=== PATIENT | male | born 1955 | race Caucasian/White ===

== ENCOUNTER 2023-08-11 08:00 | Outpatient (REF) | payer OTHER, SELFPAY ==
[2023-08-11 09:47] LABS: Cholesterol 136 mg/dL (<200); HDL Cholesterol 52 mg/dL (>40); LDL Cholesterol Calculated 76 mg/dL (<100); Triglycerides 44 mg/dL (<150)
[2023-08-11 09:53] LABS: Prostate Specific Antigen 0.76 ng/mL (<0.05-4.0)
[2023-08-11 10:02] LABS: TSH reflex Free T4 7.25 uIU/mL (0.32-4.0)
[2023-08-11 10:54] LABS: Free T4 (Free Thyroxine) 0.76 ng/dL (0.71-1.85)
== END 2023-08-11 08:01 | disposition home or self-care (01) ==
LOC: HO.LAB 08:00
PROVIDERS: PCP Nurse Practitioner Primary Care; Visit Provider Nurse Practitioner Primary Care
DX: Z12.5 Encounter for screening for malignant neoplasm of prostate (principal); E03.8 Other specified hypothyroidism
CPT/HCPCS: 36415; 80061; 84153; 84439; 84443

== ENCOUNTER → 2023-08-16 15:24 | Outpatient (BNVA) | payer OTHER, SELFPAY | PROVIDERS: PCP Nurse Practitioner Primary Care; Referring Provider Nurse Practitioner Primary Care; Visit Provider Surgery | DX: K40.90 Unilateral inguinal hernia, without obstruction or gangrene, not specified as recurrent (principal) | CPT/HCPCS: 99202 ==

== ENCOUNTER 2023-08-16 15:25 | Outpatient (AMB) | payer OTHER, SELFPAY ==
--- NOTE | 2023-08-16 15:28 | MHC.OFFVIS ---
Intake Vital Signs 08/16/23 15:33 Weight 149 lb BP 149/67 H Blood Pressure Location Rt brachial Position Sitting Pulse 46 L Intake Visit Reasons: [facility] Intake Note: This patient presents for an assessment for right inguinal hernia. Patient c/o; reports no pain, reports notices it has increased in size. 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 He says he has noticed this reducible mass on the right groin for probably about 4 months now. Sometimes it becomes bigger. He describes discomfort with this. This is reducible easily. He also has enlargement of this left testicle. He review of his records show that he had been diagnosed to have a hydrocele in the past. [facility] Medical History (Updated 08/16/23 @ 15:50 by Mehran Mosqueda MD) Right inguinal hernia Anxiety History of thyroiditis History of hyperparathyroidism Surgical History History of parathyroid surgery Family History Sister Throat cancer Review of Systems Const Denies chills and Denies fever(s) Card Denies chest pain, Denies dyspnea and Denies dyspnea on exertion Resp Denies cough, Denies dyspnea and Denies dyspnea on exertion GI Denies hematochezia and Denies change in bowel habits Denies hematuria and Denies difficulty urinating Musc Denies back pain and Denies limited range of motion Neuro Denies focal weakness and Denies convulsions Psych Denies depression and Denies mood swings Physical Exam Vital Signs: Last Vital Signs Pulse 46 L 08/16/23 15:33 BP 149/67 H 08/16/23 15:33 Const General: comfortable and no acute distress Orientation/consciousness: patient oriented x3 Neck Neck: Yes no lymphadenopathy Resp Auscultation: clear to auscultation bilaterally Cardio Rhythm: regular rhythm GI Other: Right inguinal hernia, easily reducible, nontender Palpation (GI): Soft to palpation, nontender and no guarding Other: Left testicle seems enlarged Neuro General: patient oriented x3 Assessment & Plan Assessment & Plan (1) Right inguinal hernia: Code(s): K40.90 - Unilateral inguinal hernia, without obstruction or gangrene, not specified as recurrent Plan: He has a reducible right inguinal hernia. He has some discomfort and he feels that this has increased in size. He wants to proceed with repair. I reviewed with him the technique of repair of the right inguinal hernia with mesh. I discussed the risks including but not limited to bleeding, infections, bowel injury, injury to the testicle, recurrence, postop pain, as well as the benefits and alternatives. I explained to him what to expect postoperatively. He wants to proceed He also has an enlargement of his left testicle. He has a history of hydrocele so I will order for an ultrasound of the mass scrotum. His daughter in-law was with him during the visit. Coding Level of Care Code New Pt Level 4 (09709) Diagnoses Right inguinal hernia K40.90
[2023-08-16 15:33] VITALS: BP 149/67; PULSE 46
== END 2023-08-16 15:46 | disposition home or self-care (01) ==
PROVIDERS: PCP Nurse Practitioner Primary Care; Referring Provider Nurse Practitioner Primary Care; Visit Provider Surgery
DX: K40.90 Unilateral inguinal hernia, without obstruction or gangrene, not specified as recurrent (principal)
CPT/HCPCS: 99204

== ENCOUNTER → 2023-09-21 08:47 | Day surgery (SDC) | payer OTHER, SELFPAY ==
--- NOTE | 2023-09-19 12:05 | HO.ANESPROP2 ---
HPI - Anesthesia Eval Consult details Narrative: 67yo M for Right Hernia Inguinal Reducible with Mesh PMFSH Active Problems Active Problems: All Active Problems (Updated 08/16/23 @ 15:53 by Mehran Mosqueda MD) Mass of left testicle (Acute) Right inguinal hernia (Acute) Anxiety (Acute) History of thyroiditis (Acute) History of hyperparathyroidism (Acute) Past Medical History Medical History Mass of left testicle Right inguinal hernia Anxiety History of thyroiditis History of hyperparathyroidism Family History Family History Sister Throat cancer Surgical History Surgical History History of right inguinal hernia repair (~09/25/23) History of parathyroid surgery Social History Social History Patient Tobacco Use Status: Never used Tobacco Second Hand Smoke Exposure: No Meds Allergies Allergy/AdvReac Type Severity Reaction Status Date / Time No Known Allergies Allergy Verified 10/04/23 14:09 Home Medications ?Medication ?Instructions ?Recorded ?Confirmed ?Last Taken ?Type mirtazapine 15 mg tablet 15 mg PO BEDTIME 08/16/23 09/25/23 Unknown History sertraline 25 mg tablet 25 mg PO DAILY 08/16/23 09/25/23 Unknown History Assessment and Plan Assessment Anesthesia Assessment: Chart Reviewed
== END ==
PROVIDERS: PCP Nurse Practitioner Primary Care; Visit Provider Surgery
DX: K40.90 Unilateral inguinal hernia, without obstruction or gangrene, not specified as recurrent (principal); Z53.8 Procedure and treatment not carried out for other reasons

== ENCOUNTER 2023-09-21 14:17 | Outpatient (REF) | payer OTHER, SELFPAY ==
--- NOTE | ~2023-09-21 | US_ITS ---
EXAMINATION: US SCROTUM CLINICAL INFORMATION: Other specified disorders of the male genital organs. COMPARISON: None available. TECHNIQUE: A sonogram of the scrotum was performed assessing jane-scale appearance and color Doppler flow. Spectral Doppler analysis of the arterial and venous flow were performed in the testes bilaterally. FINDINGS: RIGHT: Right testicle measures 3.8 x 2.5 x 2.2 cm, volume 10.5 mL. No focal testicular parenchymal lesions are visualized, but parenchymal echogenicity is heterogeneous with hypoechoic area measured 1.5 x 0.5 x 0.8 cm.. Spectral Doppler analysis of the arterial and venous flow is normal in the right testis Right epididymal head is very small epididymal head cyst measured 0.3 x 0.2 x 0.2 cm another epididymal body cysts measured 0.4 x 0.2 x 0.2 cm. No right varicocele is seen. There is small hydrocele. Right epididymal Doppler flow is normal. LEFT: Left testicle measures 4.9 x 2.8 x 2.6 cm, volume 18.4 mL. No focal testicular parenchymal lesions are visualized. Spectral Doppler analysis of the arterial and venous flow is normal in the left testis. Left epididymal head is normal in size. No left varicocele is seen. There is epididymal appendix present. Left epididymal body is not seen due to large hydrocele, measured 5.2 x 3.1 x 4.8 cm with a volume of 41 mL. Left epididymal Doppler flow is limited for evaluation. There is left epididymal head 0.2 cm cyst. There is a right inguinal hernia, measured 0.8 x 1.7 cm US/US scrotum IMPRESSION: Large hydrocele on the left and small hydrocele on the right Small bilateral epididymal cysts 9 right inguinal hernia without bowel loops protrusion or incarceration
== END 2023-09-21 14:18 | disposition home or self-care (01) ==
LOC: HO.US 14:17
PROVIDERS: PCP Nurse Practitioner Primary Care; Visit Provider Surgery
DX: N50.89 Other specified disorders of the male genital organs (principal)
CPT/HCPCS: 76870

== ENCOUNTER 2023-09-25 08:44 | Day surgery (SDC) | payer OTHER, SELFPAY ==
[2023-09-25] VITALS (7 sets, daily range): BP systolic 108–142; BP diastolic 52–72; PULSE 46–56; RESP 16–18; TEMP 36.1–36.4; O2SAT 96–100; BMI 24.2
--- NOTE | 2023-09-25 09:09 | P.CONAN_ITS ---
[facility] Active Problems Active Problems: All Active Problems Mass of left testicle (Acute) Right inguinal hernia (Acute) Anxiety (Acute) History of thyroiditis (Acute) History of hyperparathyroidism (Acute) Past Medical History Medical History Mass of left testicle Right inguinal hernia Anxiety History of thyroiditis History of hyperparathyroidism Family History Family History Sister Throat cancer Surgical History Surgical History History of parathyroid surgery History of Problems with Anesthesia: No Social History Social History (Reviewed 09/25/23 @ : by Elaina Willard MD) Patient Tobacco Use Status: Never used Tobacco Second Hand Smoke Exposure: No Use of substances other than those prescribed or required for medical reasons: No Are you DNR?: No Advance Directives: No Advance Directives Information Provided: Yes Advance Directives on File: No Meds Allergies Allergy/AdvReac Type Severity Reaction Status Date / Time No Known Allergies Allergy Verified 08/16/23 15:28 Active Medications: Current Medications Lactated Ringer's (Lr) 1,000 mls @ 100 mls/hr IVCONT .Q10H EMRE Home Medications ?Medication ?Instructions ?Recorded ?Confirmed ?Last Taken ?Type mirtazapine 15 mg tablet 15 mg PO BEDTIME 08/16/23 09/25/23 Unknown History sertraline 25 mg tablet 25 mg PO DAILY 08/16/23 09/25/23 Unknown History Exam Height,Weight and Vital Signs: Height 5 ft 6 in Weight 68.096 kg Last Vital Signs Temp 97.6 F 09/25/23 09:07 Pulse 49 L 09/25/23 09:07 Resp 16 09/25/23 09:07 BP 142/72 H 09/25/23 09:07 Pulse Ox 100 09/25/23 09:07 O2 Del Method Room Air 09/25/23 09:07 Airway Mallampati Class: II TM Dist: >3cm Neck ROM: Full Loose/Missing/Broken Teeth: No Heart: RRR Lungs: CTA Assessment and Plan Assessment Anesthesia Assessment: Anesthesia Plan Discussed and Chart Reviewed Final Anesthetic Review History of Problems with Anesthesia: No NPO: Yes ASA Class: II Final Preanesthetic Review: Meds/Allgs Chart Reviewed, Consent Obtained/Reviewed and Anes Risks/Benef Reviewed Patient Risk: Low Procedure Risk: Low Anesthetic Plan Anesthetic Plan: GA Disposition: Standard PACU
[2023-09-25] MEDS: Lactated Ringers 1,000 ML 100 ML IVCONT (09:19)
--- NOTE | 2023-09-25 09:47 | P.HPSUR_ITS ---
Pre-Procedural Eval Section A - 24 Hr Update-Section A only Date of Service: 09/25/23 Section B - Complete if H&P > 30 days Chief Complaint: Unilateral inguinal hernia, without obstruction or Details of Present Illness: has right sided inguinal hernia, reducible Relevant Family History (Specify if Yes): No Relevant Social History: None Present Medications: see Short Stay Collaborative assessment Medical History: Significant History (hx of hyperparathyroidism, thyroid d/o) History of Previous Operations: No relevant previous surgery Allergies: Allergies Allergy/AdvReac Type Severity Reaction Status Date / Time No Known Allergies Allergy Verified 08/16/23 15:28 Review of Systems Sugical H&P ROS: Negative: Constitution, Cardiovascular, Respiratory, Neurological, Psychiatric, Hem-Onc, Allergic/Immunologic, Gastrointestinal, Gen itourinary, Musculoskeletal, Integumentary, Endocrine and Eyes/Ears/Nose/Throat Exam Surgical H&P Exam: Normal: HEENT, Normal: Heart, Normal: Lungs, Normal: Extremities, Normal: Skin and Normal: Neurological and Significant Findings: Abdomen (reducible right inguinal hernia) Plan Diagnosis/Plan: Unchanged I have reviewed the history and physical and performed a pertinent physical examination on my patient. No changes have occurred unless specified. Time Spent With Patient Time: Total time managing care of this patient today ____ minutes.
--- NOTE | 2023-09-25 10:40 | P.OP_ITS ---
Operative Note Operative Note Date of Service: 09/25/23 Narrative: Preop diagnosis: Right inguinal hernia, reducible Postop diagnosis: Right inguinal hernia, direct, reducible Procedure: Repair of right inguinal hernia with mesh Surgeon: Mehran Mosqueda MD machine assistant: CATA Singh The patient is a 67-year-old male with a reducible mass on the right groin consistent with a right inguinal hernia. He understood the technique of repair with mesh and was aware of the risks, benefits, and alternatives. He was brought to the operating room. He was placed supine under general anesthesia via laryngeal mask airway. The right groin was prepped and draped in the usual sterile fashion. A surgical time-out was done. The patient received cefazolin 2 g IV preoperatively. I infiltrated the planned line of incision with lidocaine 1%. I made the incision along an imaginary line for anterior superior iliac spine to the pubic ramus using blade 15. This carried down with electrocautery through the full- thickness of the skin and subcutaneous fat down to the fascia. The external oblique aponeurosis was identified along with the external ring. I define this well and opened up the external oblique aponeurosis with a blade 15. I extended this incision inferomedially to connect with the external ring. The inguinal canal was therefore entered. I applied hemostasis on the divided edges of the aponeurosis. I did blunt dissection of the underside of the aponeurosis to create space for the mesh. I bluntly dissected the cord and its contents he was able to pass a Agnes drain around this. This Agnes drain was used for retraction. I identified the vas deferens and the accompanying vessels. The hernia sac was seen and we proceeded to gently separate this from the rest of the cord contents. This turned out to be actually from the floor of the canal consistent with a direct hernia. I completely define the hernia sac. I reinforced the entire floor of the canal with the plug. The plug was secured to the floor with Prolene 2 sutures to the shelving edge of the inguinal laterally cut the the internal oblique superiorly as well as medially using the inner leaflet of the plug. I reinforced the floor of the canal with a keyhole mesh. The tails of the mesh were passed around the cord at the level of the internal ring and were secured together with Prolene 2 sutures. I secured the mesh to the shelving edge of the inguinal ligament laterally, the internal oblique superiorly and medially as well as the pubic ramus inferomedially with Prolene 3-0 sutures . I observed for hemostasis. Once hemostasis was confirmed, I irrigated. I released the Agnes drain. I closed the external oblique aponeurosis with running Polysorb 2-0 stitch re-create the external ring. The subcutaneous layer was reapposed with Polysorb 3-0 interrupted sutures. Skin closure was achieved with Polysorb 4-0 subcuticular running sutures. Dressings were applied. The incision was infiltrated with Marcaine 0.5% for postop analgesia. The patient tolerated the procedure well. There were no immediate complications . Initial and final counts of sponges and instruments were correct. Estimated blood loss was about 5 cc. The patient was extubated without difficulty and transferred to the recovery room with stable vital signs.
[2023-09-25] MEDS: oxyCODONE HCl Immed Release 5 MG TABLET PO (11:22)
[2023-09-25] MEDS: Acetaminophen 325 MG TABLET 650 MG PO (11:22)
[2023-09-25] MEDS: fentaNYL citrate/PF 100 MCG/2 ML VIAL 25 MCG IVPUSH (11:22)
== END 2023-09-25 12:29 | disposition home or self-care (01) ==
PROVIDERS: PCP Nurse Practitioner Primary Care; Visit Provider Surgery
PROC: (CPT 49505; principal; 2023-09-25 12:00)
DX: K40.90 Unilateral inguinal hernia, without obstruction or gangrene, not specified as recurrent (principal); F41.9 Anxiety disorder, unspecified; N44.8 Other noninflammatory disorders of the testis; Z79.899 Other long term (current) drug therapy; Z98.890 Other specified postprocedural states
CPT/HCPCS: 49505; C1781; J0665; J0690; J1885; J2704; J3010

== ENCOUNTER → 2023-09-25 08:44 | Outpatient (BNV) | payer OTHER, SELFPAY | PROVIDERS: PCP Nurse Practitioner Primary Care; Visit Provider Surgery | DX: K40.90 Unilateral inguinal hernia, without obstruction or gangrene, not specified as recurrent (principal) | CPT/HCPCS: 49505 ==

== ENCOUNTER 2023-10-04 13:51 | Outpatient (AMB) | payer OTHER, SELFPAY ==
--- NOTE | 2023-10-04 14:02 | A.OFFVIS_ITS ---
Vital Signs 10/04/23 14:09 Weight 151 lb Intake Visit Reasons: S/P RIH w/mesh Intake Note: This patient presents for a post-op assessment status post right inguinal hernia with mesh. Pt c/o; reports pain when walking. Line O Scribe Operator Required: No Accompanied by: Other Relationship Allergies No Known Allergies Allergy (Verified 10/04/23 14:09) HPI HPI S/P RIH w/mesh: Details: He underwent repair of a right inguinal hernia with mesh last 09/25/2023. He is here for a postop visit. He seems to be doing well postoperatively. He denies significant pain. Repair site seems intact. [facility] Medical History Mass of left testicle Right inguinal hernia Anxiety History of thyroiditis History of hyperparathyroidism Surgical History History of right inguinal hernia repair (~09/25/23) History of parathyroid surgery Family History Sister Throat cancer Social History Patient Tobacco Use Status: Never used Tobacco Second Hand Smoke Exposure: No Review of Systems Const Denies chills and Denies fever(s) Card Denies chest pain, Denies dyspnea and Denies dyspnea on exertion Resp Denies cough, Denies dyspnea and Denies dyspnea on exertion GI Denies hematochezia and Denies change in bowel habits Denies hematuria and Denies difficulty urinating Musc Denies back pain and Denies limited range of motion Neuro Denies focal weakness and Denies convulsions Psych Denies depression and Denies mood swings Physical Exam Const General: comfortable and no acute distress GI Other: Right inguinal hernia repair site well healed, not infected, repair intact Assessment & Plan Assessment & Plan (1) Right inguinal hernia: Code(s): K40.90 - Unilateral inguinal hernia, without obstruction or gangrene, not specified as recurrent Category: Medical Plan: Status post repair with mesh. He is doing very well. His incision is well healed. The repair site is intact. I advised him to avoid lifting anything more than 20 lb for at least a full month after the procedure. I can see him for another postop visit in 1 month. His head was with him during the entire visit.
== END 2023-10-04 14:21 | disposition home or self-care (01) ==
PROVIDERS: PCP Nurse Practitioner Primary Care; Visit Provider Surgery
DX: K40.90 Unilateral inguinal hernia, without obstruction or gangrene, not specified as recurrent (principal)
CPT/HCPCS: 99024

== ENCOUNTER → 2023-10-04 13:51 | Outpatient (BNVA) | payer OTHER, SELFPAY | PROVIDERS: PCP Nurse Practitioner Primary Care; Visit Provider Surgery | DX: K40.90 Unilateral inguinal hernia, without obstruction or gangrene, not specified as recurrent (principal) | CPT/HCPCS: 99212 ==

== ENCOUNTER 2023-11-01 09:51 | Outpatient (AMB) | payer OTHER, SELFPAY ==
--- NOTE | 2023-11-01 09:53 | MHC.OFFVIS ---
Vital Signs 11/01/23 09:57 Weight 151 lb BP 129/60 Blood Pressure Location Rt brachial Position Sitting Pulse 47 L Intake Visit Reasons: S/P RIH w/mesh Intake Note: This patient presents for a post-op assessment status post right inguinal hernia repair with mesh. Patient c/o; reports no complaints. 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 He continues to do well. He denies any significant complaints. [facility] Medical History Mass of left testicle Right inguinal hernia Anxiety History of thyroiditis History of hyperparathyroidism Surgical History History of right inguinal hernia repair (~09/25/23) History of parathyroid surgery Family History Sister Throat cancer Social History Patient Tobacco Use Status: Never used Tobacco Second Hand Smoke Exposure: No Review of Systems Const Denies chills and Denies fever(s) Card Denies chest pain, Denies dyspnea and Denies dyspnea on exertion Resp Denies cough, Denies dyspnea and Denies dyspnea on exertion GI Denies hematochezia and Denies change in bowel habits Denies hematuria and Denies difficulty urinating Musc Denies back pain and Denies limited range of motion Neuro Denies focal weakness and Denies convulsions Psych Denies depression and Denies mood swings Physical Exam Const General: comfortable and no acute distress Resp Effort & Inspection: normal respiratory effort GI Other: Right inguinal hernia repair site is well healed, repair intact, no recurrence Assessment & Plan Assessment & Plan (1) Right inguinal hernia: Code(s): K40.90 - Unilateral inguinal hernia, without obstruction or gangrene, not specified as recurrent Category: Medical Plan: Status post right inguinal hernia repair. He continues to do well. The repair site is intact. He is cleared to return to regular level of activities. He can follow up on a p.r.n. basis. Coding Level of Care Code Global (25709) Diagnoses Right inguinal hernia K40.90
[2023-11-01 09:57] VITALS: BP 129/60; PULSE 47
== END 2023-11-01 10:12 | disposition home or self-care (01) ==
PROVIDERS: PCP Nurse Practitioner Primary Care; Visit Provider Surgery
DX: K40.90 Unilateral inguinal hernia, without obstruction or gangrene, not specified as recurrent (principal)
CPT/HCPCS: 99024

== ENCOUNTER → 2023-11-01 09:51 | Outpatient (BNVA) | payer OTHER, SELFPAY | PROVIDERS: PCP Nurse Practitioner Primary Care; Visit Provider Surgery | DX: Z09 Encounter for follow-up examination after completed treatment for conditions other than malignant neoplasm (principal); Z87.19 Personal history of other diseases of the digestive system | CPT/HCPCS: 99212 ==

== ENCOUNTER 2024-03-28 12:07 | Outpatient (REF) | payer OTHER, SELFPAY ==
[2024-03-28 13:14] LABS: MANUAL DIFF FLAG NO
[2024-03-28 13:36] LABS: Basophils Percent Auto 0.5 % (0-2); Eosinophils Absolute Auto 0.1 X10*3/uL (0.0-0.4); Eosinophils Percent Auto 1.8 % (0-4); Hematocrit 44.7 % (42.0-52.0); Hemoglobin 14.7 g/dl (14.0-18.0); Imm Gran Abs Auto 0.01 X10*3/uL (0.00-0.03); Imm Gran Pct Auto 0.2 % (0.0-0.4); Lymphocytes Absolute Auto 1.2 X10*3/uL (1.2-4.9); Lymphocytes Percent Auto 20.7 % (20-40); Mean Corpuscular HGB Conc 32.9 g/dl (31.0-36.0); Mean Corpuscular Hemoglobin 28.3 pg (27.0-33.0); Mean Corpuscular Volume 86.1 fL (80.0-98.0); Mean Platelet Volume 11.1 fL (9.4-12.4); Monocytes Absolute Auto 0.6 X10*3/uL (0.1-1.2); Monocytes Percent Auto 10.6 % (2-11); Neutrophils Absolute Auto 3.9 x10*3/uL (2.0-8.3); Neutrophils Percent Auto 66.2 % (45-73); Platelet Count 151 X10*3/uL (160-400); Red Blood Count 5.19 X10*6/uL (4.60-5.80); Red Cell Distribution Width 13.5 % (11.0-16.0)
[2024-03-28 14:10] LABS: TSH reflex Free T4 4.88 uIU/mL (0.32-4.0)
[2024-03-28 14:25] LABS: Vitamin B12 181 pg/mL (200-900)
[2024-03-28 15:48] LABS: Free T4 (Free Thyroxine) 0.83 ng/dL (0.71-1.85)
[2024-04-01 12:59] LABS: RPR Rapid Plasma Reagin NON-REACTIVE (NON-REACTIVE)
== END 2024-03-28 12:08 | disposition home or self-care (01) ==
LOC: HO.HHCL 12:07
PROVIDERS: Visit Provider Nurse Practitioner Primary Care
DX: Z13.89 Encounter for screening for other disorder (principal)
CPT/HCPCS: 36415; 82607; 84153; 84439; 84443; 85025; 86592

== ENCOUNTER 2024-03-28 12:17 | Outpatient (REF) | payer OTHER, SELFPAY ==
[2024-03-28 16:28] LABS: Appearance Urine Clear; Color Urine Yellow; Glucose Urine UA Negative (Negative); Leukocyte Esterase Urine Negative (Negative); Nitrite Urine Negative (Negative); PH 5.5 (5.0-9.0); Specific Gravity - Urine 1.025 (1.005-1.025); Urine Blood Negative (Negative); Urine Ketones Trace mg/dL (Negative); Urine Protein Negative (Neg-Trace)
[2024-03-28 17:06] LABS: Bacteria Urine None Seen (None Seen); Hyaline Casts Urine 0-2 /LPF (0-2); RBC Urine 0-2 /HPF (0-2); Squamous Epithelial Cell Urine 0-2 /HPF (0-2); WBC Urine 0-5 /HPF (0-5)
== END 2024-03-28 12:18 | disposition home or self-care (01) ==
LOC: HO.HHCL 12:17
PROVIDERS: Visit Provider Nurse Practitioner Primary Care
DX: M54.50 Low back pain, unspecified (principal); Z12.5 Encounter for screening for malignant neoplasm of prostate; R41.3 Other amnesia
CPT/HCPCS: 36415; 81001; 82607; 84153; 84439; 84443; 85025; 86592

== ENCOUNTER 2025-03-05 15:04 | Outpatient (REF) | payer OTHER, SELFPAY ==
--- OUTSIDE RECORDS SUMMARY | 2025-03-05 14:15 | XMS_ITS | Encounter Summary ---
Author Organization [employer] Address [address] [place] [address] 7 [place] [address] Care Team Providers Care Auto Finance Sales Rep Name Role Phone Chrissie Hugo Primary Care Provider Reason for Referral * Consultation (Routine) - Pending Review Specialty Diagnoses / Procedures Referred By Citlaly arizmendi Referred To Contact Gastroenterology Diagnoses Gastroesophageal reflux disease, unspecified whether esophagitis present Colon cancer screening Chrissie Hugo ANP [address] [place] [address] Phone: tel: fax: Referral ID Status Reason Start Date Expiration Date Visits Requested Visits Authorized [id number] Pending Review Specialty Services Required 03/05/2025 03/05/2026 1 1 Reason for Visit * Reason Comments sick onsite visit Encounter Details Date Type Department Care Team ([facility] st Contact Info) Description 03/05/2025 2:15 PM EDT Office Visit [facility] [address] [place] [phone] Chrissie Hugo ANP [address] [place] [address] Blurry vision, bilateral (Primary Dx); B12 deficiency; Subclinical hypothyroidism; Hyperparathyroidism (CMS/HCC); Low vitamin D level; Gastroesophageal reflux disease, unspecified whether esophagitis present; Depression with anxiety; Colon cancer screening; MEN1 (multiple endocrine neoplasia) (CMS/HCC) Social History Tobacco Use Types Packs/Day Years Used Date Smoking Tobacco: Never Passive Smoke Exposure: Never Smokeless Tobacco: Never Tobacco Cessation:Counseling Given: Not Answered Alcohol Use Standard Drinks/Week Comments Never 0 (1 standard drink = 0.6 oz pur e alcohol) Depression Answer Date Recorded Patient Health Questionnaire-9 Score 17 03/05/2025 Patient Health Questionnaire-9 Score 17 03/05/2025 Last PHQ-9: Questionnaire Data Not on file 0 03/05/2025 Housing Stability Answer Date Recorded What is your housing situation today? I have bryson fine 03/05/[address] you li ve. Do you have problems with any of the following? None of the above 03/05/2025 Food Insecurity Answer Date Recorded Within the past 12 months, y ou worried that your food would run out before you got money to buy more: Never True 03/05/2025 Within the past 12 months,th e food you bought just didn't last and you didn't have enough money to get more: Never True Transportation Answer Date Recorded In the past 12 months, has l ack of transportation kept you from medical appts, meetings, work or from getting things needed for daily living? No 03/05/2025 Utilities Answer Date Recorded In the past 12 months, has t he electric, gas, oil or water company threatened to shut off services in your home? No 03/05/2025 Depression Answer Date Recorded Patient Health Questionnaire-2 Score 6 03/05/2025 Internet Access Answer Date Recorded Internet Access Q1 No 03/05/2025 Internet Access Q2 I cannot afford it 03/05/2025 Sex and Gender Information Value Date Recorded Sex Assigned at Male 04/17/2022 10:37 AM EDT Legal Sex Male 10:37 AM EDT Gender Identity Male 04/17/2022 10:37 AM EDT Sexual Orientation Straight 04/17/2022 10 :37 AM EDT documented as of this encounter Last Filed Vital Signs Vital Sign Reading Time Taken Comments Blood Pressure 120/70 03/05/2025 2:12 PM EDT Pulse 56 03/05/2025 2:12 PM EDT Temperature 36.6 C (97.9 F) 03/05/2025 2:12 PM EDT Respiratory Rate 20 03/05/2025 2:12 PM EDT Oxygen Saturation - - Inhaled Oxygen Concentration - - Weight 66.7 kg (147 lb) 03/05/2025 2:12 PM EDT Height 170.2 cm (5' 7 ) 03/05/2025 2:12 PM EDT Body Mass Index 23.02 03/05/2025 2:12 PM EDT documented in this encounter Functional Status * Over the past 2 weeks, how often have you been bothered by any of the following problems? Question Answer Date of Assessment Author Patient Health Questionnaire -2 Score 6 03/05/2025 2:54 PM EDT Russ Chavez MA * Little interest or pleasure in doing things Answer Date of Assessment Author Nearly every day 03/05/2025 2:54 PM EDT Russ Chavez MA * Feeling down, depressed, or hopeless Answer Date of Assessment Author Nearly every day 03/05/2025 2:54 PM EDT Russ Chavez MA * Trouble falling or staying asleep, or sleeping too much Answer Date of Assessment Author More than half the days 03/05/2025 2:54 PM EDT Russ Ordonez MA * Feeling tired or having little energy Answer Date of Assessment Author Not at all 03/05/2025 2:54 PM EDT Zaid Chavez MA * Poor appetite or overeating Answer Date of Assessment Author Several days 03/05/2025 2:54 PM EDT Zaid Chavez MA * Feeling bad about yourself - or that you are a failure or have let yourself or your family down Answer Date of Assessment Author More than half the days 03/05/2025 2:54 PM EDT Russ Ordonez MA * Trouble concentrating on things, such as reading the newspaper or watching television Answer Date of Assessment Author Nearly every day 03/05/2025 2:54 PM EDT Russ Chavez MA * Moving or speaking so slowly that other people could have noticed? Or the opposite - being so fidgety or restless that you have been moving around a lot more than usual. Answer Date of Assessment Author Nearly every day 03/05/2025 2:54 PM EDT Russ Chavez MA * Thoughts that you would be better off or hurting yourself in some way Answer Date of Assessment Author Not at all 03/05/2025 2:54 PM EDT Zaid Chavez MA * Patient Health Questionnaire-9 Score Answer Date of Assessment Author 17 03/05/2025 2:54 PM EDT Zaid Chavez MA * How difficult have these problems made it for you to do your work, take care of things at home, or get along with other people? Answer Date of Assessment Author Very difficult 03/05/2025 2:54 PM EDT Zaid Chavez MA documented as of this encounter Progress Notes * [facility] - 03/05/2025 2:15 PM EDT Subjective Patient ID: Mary Cornejo is a 69 y.o. male who presents for sick onsite visit. HPI Per triage: Pt reports blurry vision for several days. Pt is concerned that a cataract is present but, son reports there is no visible cataract in the eye. Neg for pain, headache, jaw pain or visible specks in eye camilo. Sx present for 1 mo. Not like looking through cloud. Just blurry. No eye pain and no CIFUENTES. Reading and middle distance is fine, distance not. He is concerned about cataracts. Last eye exam years ago. Also having acid reflux, worse w/ oily food, 3x/wk, yes decreased appetite, no weight loss. No blood in stool. Lesion on tongue x 4d on L side of tongue, looks like superficial blister, not ulcerated, rec salt water gargles, let us know if does not improve, check b12 Memory loss still present, no longer on b12 supplement Would like c-scope for CRC screening Son Javier provides interpretation per pt preference. Review of Systems Constitutional: Negative for fatigue, fever and unexpected weight change. HENT: Negative for sore throat. Eyes: Positive for visual disturbance. Negative for photophobia, pain, discharge, redness and itching. Respiratory: Negative for chest tightness, shortness of breath and wheezing. Gastrointestinal: Negative for constipation. Endocrine: Negative for polydipsia, polyphagia and polyuria. Genitourinary: Negative for difficulty urinating and dysuria. Musculoskeletal: Negative for back pain. Skin: Negative for rash. Neurological: Negative for dizziness, light-headedness and headaches. Psychiatric/Behavioral: Positive for decreased concentration, dysphoric mood and sleep disturbance.Negative for suicidal ideas. The patient is nervous/anxious. Objective BP 120/70 (BP Location: Left arm, Patient Position: Sitting, BP Cuff Size: Adult) Pulse56 Temp 97.9 ??F (36.6 ??C) (Oral) Resp 20 Ht 5' 7 (1.702 m) Wt 147 lb (66.7 kg) BMI 23.02 kg/m?? Physical Exam Vitals reviewed. Constitutional: General: He is not in acute distress. Appearance: Normal appearance. He is not ill-appearing. HENT: Head: Normocephalic and atraumatic. Mouth/Throat: Pharynx: No oropharyngeal exudate or posterior oropharyngeal erythema. Comments: Small blister on L side of tongue Eyes: General: No scleral icterus. Extraocular Movements: Extraocular movements intact. Pupils: Pupils are equal, round, and reactive to light. Cardiovascular: Rate and Rhythm: Normal rate and regular rhythm. Pulmonary: Effort: Pulmonary effort is normal. No accessory muscle usage or respiratory distress. Neurological: Mental Status: He is alert and oriented to person, place, and time. Gait: Gait normal. Psychiatric: Mood and Affect: Mood normal. Behavior: Behavior normal. Assessment/Plan Diagnoses and all orders for this visit: Blurry vision, bilateral Eye care referral B12 deficiency reviewed effect of low b12 incl on memory and mood - Vitamin B12; Future Depression w/ anxiety Cont mirt at bedtime Check b12 level Start lexapro low dose Tried sertraline in past - felt more calm but tired during the day Reviewed side effects of new medication, when to call clinic, when to stop med (such as w/ worsening of depression with mental health meds or occurrence of rash, allergic reaction). follow-up 6 weeks med start and GERD Subclinical hypothyroidism - TSH W/Reflex to FT4; Future Hyperparathyroidism ([facility]) S/p parathyroidectomy - Basic Metabolic Panel; Future - PTH, Intact Without Calcium; Future Low vitamin D level - Vitamin D, 25-Hydroxy, Total, Immunoassay; Future MEN1 Cont plan and follow-up per [facility] Gastroesophageal reflux disease, unspecified whether esophagitis present Avoid triggers, decrease acidic food intake as well for oral lesion, if not healing let me know - will do salt water gargles - omeprazole (PriLOSEC) [address] capsule; Take 1 capsule once daily. Do not crush or chew. Other orders - Tdap vaccine greater than or equal to 7 years old IM - Pneumococcal conjugate vaccine 20-valent IM BMI Readings from Last 3 Encounters: 03/05/25 23.02 kg/m?? 09/10/24 21.83 kg/m?? 03/28/24 23.90 kg/m?? Wt Readings from Last 3 Encounters: 03/05/25 147 lb (66.7 kg) 09/10/24 139 lb 6.4 oz (63.2 kg) 03/28/24 152 lb 9.6 oz (69.2 kg) Future Appointments Date Time Provider Department Center 04/30/2025 12:45 PM Jolly Watters [facility] DENT [facility] documented in this encounter Plan of Treatment Upcoming Encounters Date Type Department Care Team (Late st Contact Info) Description 04/30/2025 12:45 PM EST Office Visit [facility] ADULT DENTAL [address] [place] [address] Jolly Watters [address] [place] [address] 05/07/2025 1:15 PM EST Office Visit [facility] MED[facility] [address] [place] [address] Chrissie Hugo ANP [address] [place] [address] Scheduled Orders Name Type Priority Associated Diagnoses Orde r Schedule Vitamin B12 Lab Routine B12 deficiency Expected: 03/05/2025 (Approximate), Expires: 03/05/2026 TSH W/Reflex to FT4 Lab Routine Subclinical hypothyroidism Expected: 03/05/2025 (Approximate), Expires: 03/05/2026 Basic Metabolic Panel Lab Routine Hyperparathyroidism ([facility]/HCC) Expected: 03/05/2025 (Approximate), Expires: 03/05/2026 Vitamin D, 25-Hydroxy, Total, Immunoassay Lab Routine Low vitamin D level Expected: 03/05/2025 (Approximate), Expires: 03/05/2026 PTH, Intact Without Calcium Lab Routine Hyperparathyroidism (CMS/HCC) Expected: 03/05/2025, Expires: 03/05/2026 Scheduled Referrals Name Type Priority Associated Diagnoses Order Schedule Referral to Gastroenterology Outpatient Referral Routine Gastroesophageal reflux disease, unspecified whether esophagitis present Colon cancer screening Expected: 03/05/2025 (Approximate), Expires: 03/05/2026 documented as of this encounter Visit Diagnoses Diagnosis Blurry vision, bilateral- Primary Other specified visual disturbances B12 deficiency Subclinical hypothyroidism Other specified acquired hypothyroidism Hyperparathyroidism ([facility]) Hyperparathyroidism, unspecified Low vitamin D level Gastroesophageal reflux disease, unspecified whether esophagitis present Depression with anxiety Dysthymic disorder Colon cancer screening Special screening for malignant neoplasms, colon MEN1 (multiple endocrine neoplasia) ([facility]) 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
--- OUTSIDE RECORDS SUMMARY | 2025-03-05 16:39 | XMS_ITS | Encounter Summary ---
Author Organization [employer] Address [address] [facility] 7t [place] [address] Care Team Providers Care Emergency Communications Dispatcher Name Role Phone Chrissie Hugo Primary Care Provider [phone] Reason for Visit * Reason Onset Date Comments chart prep 03/04/2025 Encounter Details Date Type Department Care Team ([facility] st Contact Info) Description 03/04/2025 Telephone [facility] [address], [place] [phone] Chrissie Hugo ANP [address] [place] [address] chart prep Social History Tobacco Use Types Packs/Day Years Used Date Smoking Tobacco: Never Passive Smoke Exposure: Never Smokeless Tobacco: Never Alcohol Use Standard Drinks/Week Comments Never 0 [...] AM EDT documented as of this encounter Miscellaneous Notes * Telephone Encounter - Russ Chavez MA - 03/04/2025 12:09 PM EDT Chart Prep Labs: not applicable Images: not applicable Referrals: complete Vaccines due: Covid, Flu, Tdap, RSV, and Zoster Screenings: colonoscopy Overdue care gaps: SBIRT, SDOH, PHQ-9, CRIS-7, Oral health screening, and Disability screen documented in this encounter Plan of Treatment Upcoming Encounters Date Type Department Care Team (Late st Contact Info) Description 04/30/2025 12:45 PM EST Office Visit [facility] ADULT DENTAL [address] [place] [address] Julian Wattersaris [address] [place] [address] 05/07/2025 1:15 PM EST Office Visit [facility] [address] [place] [address] Chrissie Hugo ANP [address] [place] [address] documented as of this encounter Visit Diagnoses Not on filedocumented in this encounter Additional Health Concerns Assessment Noted Time PHQ-9 Depression Total Score: 13 023 1:36 PM EDT documented as of this encounter Care Teams Emergency Communications Dispatcher Relationship Specialty Start Date End Date Chrissie Hugo ANP [address] [place] [address] PCP - General Family Medicine 08/17/20 documented as of this encounter
--- OUTSIDE RECORDS SUMMARY | 2025-03-05 16:39 | XMS_ITS | Encounter Summary ---
Author Organization [employer] Address [address] [facility] 7t [place] [address] Care Team Providers Care Dock Loader Name Role Phone Chrissie Hugo Primary Care Provider [phone] Reason for Visit * Reason Onset Date Comments Med Refill 06/19/2024 Encounter Details Date Type Department Care Team ([facility] st Contact Info) Description 06/19/2024 Refill [facility] [address] [place], [place] [phone] Chrissie Hugo ANP [address] [place], [place] [phone] Other insomnia Social History Tobacco Use Types Packs/Day Years Used Date Smoking Tobacco: Never Passive Smoke Exposure: Never Smokeless Tobacco: Never Alcohol Use Standard Drinks/Week Comments Never 0 (1 standard drink = 0.6 oz pur e alcohol) Depression Answer Date Recorded Patient Health Questionnaire-9 Score 13 11/16/2022 Housing Stability Answer Date Recorded What is your housing situation today? I have bryson fine 04/28/[address] you li ve. Do you have problems with any of the following? None of the above 04/28/2023 Food Insecurity Answer Date Recorded Within the past 12 months, y ou worried that your food would run out before you got money to buy more: Never True 04/28/2023 Within the past 12 months,th e food you bought just didn't last and you didn't have enough money to get more: Never True 04/2023 Transportation Answer Date Recorded In the past 12 months, has l ack of transportation kept you from medical appts, meetings, work or from getting things needed for daily living? No 04/28/2023 Utilities Answer Date Recorded In the past 12 months, has t he electric, gas, oil or water company threatened to shut off services in your home? No 04/28/2023 Depression Answer Date Recorded Patient Health Questionnaire-2 Score 6 11/16/2022 Sex and Gender Information Value Date Recorded Sex Assigned at Male 04/17/2022 10:37 AM EDT Legal Sex Male 10:37 AM EDT Gender Identity Male 04/17/2022 10:37 AM EDT Sexual Orientation Straight 04/17/2022 10 :37 AM EDT documented as of this encounter Plan of Treatment Upcoming Encounters Date Type Department Care Team (Late st Contact Info) Description 04/30/2025 12:45 PM EST Office Visit [facility] ADULT DENTAL [address] [place] [address] Janene, Jolly [address] [place] [address] 05/07/2025 1:15 PM EST Office Visit [facility] [address] [place] [address] Chrissie Hugo ANP [address] [place] [address] documented as of this encounter Visit Diagnoses Diagnosis Other insomnia documented in this encounter Additional Health Concerns Assessment Noted Time PHQ-9 Depression Total Score: 13 023 1:36 PM EDT documented as of this encounter Care Teams Dock Loader Relationship Specialty Start Date End Date Chrissie Hugo ANP [address] [place] [phone] PCP - General Family Medicine 08/17/20 documented as of this encounter
--- OUTSIDE RECORDS SUMMARY | 2025-03-05 16:39 | XMS_ITS | Encounter Summary ---
Author Organization [employer] Address [address] [facility] 7t [place] [address] Care Team Providers Care Electronic Repair Troubleshooter Name Role Phone Chrissie Hugo Primary Care Provider [phone] Reason for Visit * Reason Onset Date Comments Nurse Triage 02/25/2025 Encounter Details Date Type Department Care Team ([facility] st Contact Info) Description 02/25/2025 Telephone [facility] [address] [place], [place] [phone] Chrissie Hugo ANP [address] [place] [address] Nurse Triage Social History Tobacco Use Types Packs/Day Years [...] encounter Miscellaneous Notes * Telephone Encounter - Kayla Lozano RN - 02/25/2025 4:08 PM EDT Triage call Pt son is able to speak for Pt who is sitting near him. Pt reports blurry vision for several days. Pt is concerned that a cataract is present but, son reports there is no visible cataractin the eye. Neg for pain, headache, jaw pain or visible specks in eye camilo. Pt requests to see PCP. ASK apt 03/05/25 @ 215pm with PCP. Insurance is verified as active prior to booking. Protocol Used: Vision Loss or Change (Adult) Protocol-Based Disposition: See in Office or Video Visit within 2 Weeks Video visit not offered Positive Triage Question: * Blurred vision or visual changes and gradual onset (e.g., weeks, months) * All higher-acuity triage questions were negative Care Advice Discussed: * Reasons To Call Back - You have any questions or concerns about your vision - You become worse * Telephone Encounter - Henry Elizondo - 02/25/2025 3:47 PM EDT Symptom: Vision Loss or Change Outcome: Schedule an appointment to be seen within 24 hours Reason: Caller denied all higher acuity questions The caller accepted this outcome. Contact pt at [phone] documented in this encounter Plan of Treatment Upcoming Encounters Date Type Department Care Team (Late st Contact Info) Description 04/30/2025 12:45 PM EST Office Visit [facility] ADULT DENTAL [address] [place], [place] [phone] Julian Wattersaris [address] [place] [address] 05/07/2025 1:15 PM EST Office Visit [facility] [address] [place], [place] [phone] Chrissie Hugo ANP [address] [place] [address] documented as of this encounter Visit Diagnoses Not on filedocumented in this encounter Additional Health Concerns Assessment Noted Time PHQ-9 Depression Total Score: 13 023 1:36 PM EDT documented as of this encounter Care Teams Electronic Repair Troubleshooter Relationship Specialty Start Date End Date Chrissie Hugo ANP [address] [place] [address] PCP - General Family Medicine 08/17/20 documented as of this encounter
--- OUTSIDE RECORDS SUMMARY | 2025-03-05 16:39 | XMS_ITS | Encounter Summary ---
Author Organization [employer] Address [address] [facility] 7[address] [place] [address] Care Team Providers Care Underbaster Name Role Phone Chrissie Hugo Primary Care Provider [phone] Encounter Details Date Type Department Care Team (Late st Contact Info) Description 01/03/2023 Abstract [facility] [address] [place], [place] [phone] Chrissie Hugo ANP [address] [place], [place] [phone] Social History Tobacco Use Types Packs/Day Years Used Date Smoking Tobacco: Never Passive Smoke Exposure: Never Smokeless Tobacco: Never Alcohol Use Standard Drinks/Week Comments Never 0 (1 standard drink = 0.6 oz pur e alcohol) Depression Answer Date Recorded Patient Health Questionnaire-9 Score 13 11/16/2022 Depression Answer Date Recorded Patient Health Questionnaire-2 Score 6 11/16/2022 Sex and Gender Information Value Date Recorded Sex Assigned at Male 04/17/2022 10:37 AM EDT Legal Sex Male 10:37 AM EDT Gender Identity Male 04/17/2022 10:37 AM EDT Sexual Orientation Straight 04/17/2022 10 :37 AM EDT COVID-19 Exposure Response Date Recorded In the last 10 days, have yo u been in contact with someone who was confirmed or suspected to have Coronavirus/COVID-19? No / Unsure 12/20/2022 2:11 PM EDT documented as of this encounter Plan of Treatment Upcoming Encounters Date Type Department Care Team (Late st Contact Info) Description 04/30/2025 12:45 PM EST Office Visit [facility] AD[facility] DENT[facility] [address] [place] [address] Janene Jolly [address] [place] [address] 05/07/2025 1:15 PM EST Office Visit [facility] [address] [place] [address] Chrissie Hugo ANP [address] [place] [address] documented as of this encounter Visit Diagnoses Not on filedocumented in this encounter Additional Health Concerns Assessment Noted Time PHQ-9 Depression Total Score: 13 023 1:36 PM EDT documented as of this encounter Care Teams Underbaster Relationship Specialty Start Date End Date Chrissie Hugo ANP [address] [place] [address] PCP - General Family Medicine 08/17/20 documented as of this encounter
--- OUTSIDE RECORDS SUMMARY | 2025-03-05 16:39 | XMS_ITS | Clinical Summary ---
Author Organization [employer] Address [address] [facility] 7t [place] [address] Care Team Providers Care Conveyor Belt Operator Name Role Phone Chrissie Hugo CUCO Primary Care Provider [phone] Allergies No known active allergies Medications * This document contains information received from the source organization and may not represent a complete record from that organization. levothyroxine (Synthroid, Levoxyl) 50 MCG tabletIndications :Subclinical hypothyroidism TAKE 1 TABLET BY MOUTH BEFORE BREAKFAST 90 tablet 3 03/28/20 24 Active cyanocobalamin (Vitamin B-12) 1000 MCG/ML injection Inject 1 mL (1,000 mcg) into the muscle every 7 (seven) days. 4 mL 03/28/20 24 Active Cyanocobalamin (B-12) 1000 MCG sublingual tabletIndications :B12 deficiency Place 1 tablet under the tongue Once daily. Do not start before April 25, 2024. 90 tablet 1 04/25/20 24 Active mirtazapine (Remeron) 15 MG tabletIndications :Other insomnia TAKE 1 TABLET BY MOUTH EVERY DAY AT BEDTIME 90 tablet 1 02/05/20 25 Active meloxicam (Mobic) 15 MG tablet Take 15 mg by mouth Once per day. 03/04/20 25 Active omeprazole (PriLOSEC) [address] capsuleIndication s:Gastroesophagea l reflux disease, unspecified whether esophagitis present Take 1 capsule once daily. Do not crush or chew. 56 capsule 03/05/20 25 Active escitalopram (Lexapro) 5 MG tabletIndications :Depression with anxiety Take 1 tablet (5 mg) by mouth Once per day. 30 tablet 2 03/05/20 25 025 Active mirtazapine (Remeron) 15 MG tabletIndications :Other insomnia TAKE 1 TABLET BY MOUTH EVERYDAY AT BEDTIME 90 tablet 09/25/19 25 025 Discontinued Active Problems Problem Noted Date Diagnosed Date MEN1 (multiple endocrine neoplasia) 03/05/2025 Colon cancer screening 03/05/2025 Overview (03/05/2025): referred to GI 03/05/25 Anxiety 12/28/2022 Assessment & Plan (12/28/2022 4:04 PM EDT): Patient presents with constant worry, restlessness, difficulty sleeping, irritability, inability to manage worry thoughts, decreased appetite, difficulty concentrating, anhedonia, indecisiveness and hopelessness nearly every day in the past 2 weeks. He reports sxs started about a year ago, but worsen over the past month. During intervention psyhcoeducation around anxiety components (fight or flight), stress vs distress and pathological presentation of stress was provided. We discussed options for treatment such as individual therapy and medication. Patient was engaged and agreeable to exploring medication, but declined further services at this time. Information for accessing [facility] at [facility] was offered in the event further supports were needed in the future. Provider consulted with PCP around potential prescription for managing current sxs. PCP indicated he would discuss with patient and start on medication. Autoimmune thyroiditis 10/19/2020 Hyperparathyroidism 10/19/2020 Overview (07/25/2023): Now s/p parathyroidectomy 02/2023 Other insomnia 02/06/2020 Low vitamin D level 03/23/2019 Subclinical hypothyroidism 03/23/2019 Hydrocele, left 01/22/2019 Overview (08/30/2022): Testicular Ultrasound 02/06/19= Large left Hydrocele Referred to Urologist Encounters Date Type Department Care Team Description 03/05/2025 2:15 PM EDT Office Visit [facility] MEDICINE [address] [place] [address] Chrissie Hugo ANP Blurry vision, bilateral (Primary Dx); B12 deficiency; Subclinical hypothyroidism; Hyperparathyroidism (CMS/HCC); Low vitamin D level; Gastroesophageal reflux disease, unspecified whether esophagitis present; Depression with anxiety; Colon cancer screening; MEN1 (multiple endocrine neoplasia) ([facility]/HCC) 03/05/2025 Travel 03/04/2025 Telephone [facility] [address] [place] [address] Chrissie Hugo ANP chart prep 02/25/2025 Telephone [facility] [address] [place], [place] [phone] Chrissie Hugo ANP Nurse Triage 02/03/2025 Refill [facility] [address] [place], [place] [phone] Chrissie Hugo ANP Other insomnia from Last 3 Months Immunizations Immunization Administration Dates Next Due Influenza Injectable Quadriv alant Preservative Free IIV4 MDCK 02/20/2023,05/22/2020 Influenza Quadrivalent Adjuvanted 03/15/2023 Influenza injectable quadriv alent preservative free 03/20/2019 Influenza, High Dose Seasona l, Preservative Free 04/08/2024 Pfizer Covid-19 Vaccine 12+ 08/02/2021,,08/02/2020 Pfizer Covid-19 Vaccine 12+ Bivalent 06/20/2022 Pneumococcal Conjugate PCV 20 03/05/2025 Tdap 03/05/2025 Social History Tobacco Use Types Packs/Day Years [...] your housing situation today? I have bryson babatunde 03/05/[address] you li [...] Orientation Straight 04/17/2022 10 :37 AM EDT Last Filed Vital Signs Vital Sign Reading Time Taken Comments Blood Pressure 120/70 03/05/2025 2:12 PM EDT Pulse 56 03/05/2025 2:12 PM EDT Temperature 36.6 C (97.9 F) 03/05/2025 2:12 PM EDT Respiratory Rate 20 03/05/2025 2:12 PM EDT Oxygen Saturation 99% 09/10/2024 6:53 PM EDT Inhaled Oxygen Concentration - - Weight 66.7 kg (147 lb) 03/05/2025 2:12 PM EDT Height 170.2 cm (5' 7 ) 03/05/2025 2:12 PM EDT Body Mass Index 23.02 03/05/2025 2:12 PM EDT Plan of Treatment Upcoming Encounters Date Type Department Care Team (Late st Contact Info) Description 04/30/2025 12:45 PM EST Office Visit [facility] ADULT DENTAL [address] [place], [place] [phone] Jolly Watters [address] [place], [place] [phone] 05/07/2025 1:15 PM EST Office Visit [facility] MEDICINE [address] [place], [place] [phone] Chrissie Hugo ANP [address] [place], [place] [phone] Health Maintenance Due Date Last Done Comments CT Colonography 1955 Colonoscopy 1955 Colorectal Cancer Screening 1955 Dental Prophylaxis 1955 FIT DNA/Cologuard 1955 FIT 1955 FOBT 1955 Sigmoidoscopy 1955 Zoster Vaccines (1 of 2) 11/16/2005 Dental Oral Exam 09/04/2023 03/05/2023 Dental X-Ray: Bitewings 03/06/2024 03/05/2023 COVID-19 Vaccine ( season) 2025 06/20/2022, 08/02/2021, 08/24/2020, Additional history exists Influenza Vaccine (#1) 2025 , 03/15/2023, 02/20/2023, Additional history exists Depression Monitoring 09/02/2025 03/05/2025, 025 Alcohol/Substance Use Screening 03/05/2026 03/05/2025 SDOH Screening 03/05/2026 03/05/2025 Tobacco Screening 03/05/2026 03/05/2025 Dental X-Ray: Full Mouth 11/01/2026 11/01/2023, 02/16 Lipid Panel 08/11/2028 08/11/2023, 11/17, 09/01/2020 RSV Patients and Patients Aged 60 years or older (1 - 1-dose 75+ series) 11/16/2030 DTaP/Tdap/Td Vaccines (2 - Td or Tdap) 03/05/2035 03/05/2025 Hepatitis C Screening Completed 09/01/2020 Pneumococcal Vaccine: 50+ Years Completed 03/05/2025 HIB Vaccines Aged Out No longer eligi ble based on patient's age to complete this topic HPV Vaccines Aged Out No longer eligi ble based on patient's age to complete this topic Hepatitis A Vaccines Aged Out No long er eligible based on patient's age to complete this topic Hepatitis B Vaccines Aged Out No long er eligible based on patient's age to complete this topic IPV Vaccines Aged Out No longer eligi ble based on patient's age to complete this topic Meningococcal B Vaccine Aged Out No l onger eligible based on patient's age to complete this topic Meningococcal Vaccine Aged Out No amy john eligible based on patient's age to complete this topic RSV under 20 months Aged Out No longe r eligible based on patient's age to complete this topic Rotavirus Vaccines Aged Out No longer eligible based on patient's age to complete this topic Procedures Procedure Name Priority Date/Time Associated Diagnosis Comments PANORAMIC RADIOGRAPHIC IMAGE Routine 11/01/2023 1:00 PM EDT LIPID PANEL, STANDARD Routine 08/11/2023 8:08 AM EST Subclinical hypothyroidism INTRAORAL - COMPLETE SERIES OF RADIOGRAPHIC IMAGES Routine 03/05/2023 8:00 AM EDT COMPREHENSIVE ORAL EVALUATION - NEW OR ESTABLISHED PATIENT Routine 03/05/2023 8:00 AM EDT ZZZ HISTORICAL HEPATITIS C AB W/REFL TO HCV RNA, QN, PCR Routine 09/01/2020 8:15 AM EDT from Last 3 Months or Most Recently Relevant to Health Maintenance Results * Lipid Panel, Standard (08/11/2023 8:08 AM EST) Triglycerides 44 <150 mg/dL [facility] Comment:Desirable Triglyceri de: less than 150 mg/dLBorderline High Triglyceride 150-199 mg/dLHigh Triglyceride: 200-499 mg/dLVery High Triglyceride: greater than or equal to 5OO mg/dL Cholesterol 136 <200 mg/dL [facility] Comment:Desirable Cholestero l: less than 200 mg/dLBorderline High Cholesterol: 200-239 mg/dLHigh Cholesterol: greater than 239 mg/dL LDL Cholesterol Calculated 76 <100 mg/dL [facility] Comment:Desirable LDL: less than 100 mg/dLNear Optimal/Above Optimal LDL: 110- 129 mg/dLBorderline High LDL: 130-159 mg/dLHigh LDL: 160-189 mg/dLVery High LDL: greater than or equal to 190 mg/dL HDL Cholesterol 52 >40 mg/dL [facility] Comment:Desirable HDL: great er than 40 mg/dL Note: This HDL assay may give artificially low results in patients with liver disease. Blood Venous blood specimen / Unknown 08/11/2023 8:08 AM EST 08/11/2023 8:08 AM EST us Chrissie Hugo ANP LAB BLOOD ORDERABLES Final Resul t [facility] [address] [place] [address] [phone] * HEPATITIS C AB W/REFL TO HCV RNA, QN, PCR (09/01/2020 8:15 AM EDT) HEPATITIS C ANTIBODY NON-REACT DAVID NON-REACT DAVID [facility] INDEX 0.08 <1.00 [facility] Comment: HCV antibody was non-reactive. There is no laboratory evidence of HCV infection. In most cases, no further action is required. However, if recent HCV exposure is suspected, a test for HCV RNA (test code 33865) is suggested. For additional information please refer to http://education.[employer]/faq/XLU10v7 (This link is being provided for informational/ educational purposes only.) 09/01/2020 8:15 AM EDT us Chrissie [facility]NON ORDERABLE LABS Fi nal Result [facility] [address] from Last 3 Months or Most Recently Relevant to Health Maintenance Insurance [facility] STANDARD [place] MEDICARE ADVANTAGE DENTAL - DQ [facility] Care Teams Conveyor Belt Operator Relationship Specialty Start Date End Date Chrissie Hugo ANP [address] [place] [address] PCP - General Family Medicine 08/17/20
--- OUTSIDE RECORDS SUMMARY | 2025-03-05 16:39 | XMS_ITS | Encounter Summary ---
Author Organization [employer] Address [address] 7t [place] [address] Care Team Providers Care Shot Hole Driller Name Role Phone Chrissie Hugo CUCO Primary Care Provider [phone] Encounter Details Date Type Department Care Team (Latest Contact Info) Description 03/05/2025 Travel Social History Tobacco Use Types Packs/Day Years [...] AM EDT documented as of this encounter Functional Status * Over the [...] [place] documented as of this encounter Plan of Treatment Upcoming Encounters Date Type Department Care Team (Late st Contact Info) Description 04/30/2025 12:45 PM EST Office Visit [facility] ADULT DENTAL [address] [place] [address] Janene, Jolly [address] [place] [address] 05/07/2025 1:15 PM EST Office Visit [facility] MEDICINE [address] [place] [address] Chrissie Hugo ANP [address] [place] [address] documented as of this encounter Visit Diagnoses Not on filedocumented in this encounter Additional Health Concerns Assessment Noted Time PHQ-9 Depression Total Score: 025 2:54 PM EDT documented as of this encounter Care Teams Shot Hole Driller Relationship Specialty Start Date End Date Chrissie Hugo ANP [address] [place] [phone] PCP - General Family Medicine 08/17/20 documented as of this encounter
--- OUTSIDE RECORDS SUMMARY | 2025-03-05 16:39 | XMS_ITS | Encounter Summary ---
Author Organization [employer] Address [address] [facility] 7t [place] [address] Care Team Providers Care Visual Education Director Name Role Phone Chrissie Hugo Primary Care Provider [phone] Reason for Visit * Reason Onset Date Comments Referral 09/26/2024 Encounter Details Date Type Department Care Team ([facility] st Contact Info) Description 09/26/2024 Telephone [facility] MEDICINE [address] [place], [place] [phone] Chrissie Hugo ANP [address] [place], [place] [phone] Referral Social History Tobacco Use Types Packs/Day Years [...] encounter Miscellaneous Notes * Telephone Encounter - Edda Campos - 09/26/2024 11:30 AM EDT Tc from Makenzie DO regarding referral. (Encounter 09/10/24) Moshe Mondragon P. [phone] F. [phone] documented in this encounter Plan of Treatment Upcoming Encounters Date Type Department Care Team (Late st Contact Info) Description 04/30/2025 12:45 PM EST Office Visit [facility] ADULT DENTAL [address] [place] [address] Janene, Jolly [address] [place] [address] 05/07/2025 1:15 PM EST Office Visit [facility] MEDICINE [address] [place] [address] Chrissie Hugo ANP [address] [place] [address] documented as of this encounter Visit Diagnoses Not on filedocumented in this encounter Additional Health Concerns Assessment Noted Time PHQ-9 Depression Total Score: 13 023 1:36 PM EDT documented as of this encounter Care Teams Visual Education Director Relationship Specialty Start Date End Date Chrissie Hugo ANP [address] [place] [address] PCP - General Family Medicine 08/17/20 documented as of this encounter
--- OUTSIDE RECORDS SUMMARY | 2025-03-05 16:39 | XMS_ITS | Encounter Summary ---
Author Organization [employer] Address [address] [facility] 7t [place] [address] Care Team Providers Care Accountant Auditor Name Role Phone Chrissie Hugo Primary Care Provider [phone] Reason for Referral * Consultation (Routine) - Closed Specialty Diagnoses / Procedures Referred By Citlaly arizmendi Referred To Contact Orthopaedic Surgery Diagnoses Low back pain at multiple sites Britney Hanson NP [address] [place] [address] Phone: tel: fax: [facility] [address] [place] [address] [place] [address] Phone: tel: fax: Referral ID Status Reason Start Date Expiration Date V isits Requested Visits Authorized [id number] Closed Specialty Services Required 09/29/2024 09/29/2025 1 1 Encounter Details Date Type Department Care Team (Late st Contact Info) Description 09/29/2024 Orders Only [facility] [address] [place] [address] Britney Hanson NP [address] [place], [place] [phone] Low back pain at multiple sites (Primary Dx) Social History Tobacco Use Types Packs/Day Years [...] Description 04/30/2025 12:45 PM EST Office Visit [facility] ADULT DENTAL [address] [place] [address] Jolly Watters [address] [place] [address] 05/07/2025 1:15 PM EST Office Visit [facility] MEDICINE [address] [place] [address] Chrissie Hugo ANP [address] [place] [address] documented as of this encounter Procedures Procedure Name Priority Date/Time Associated Diagnosis Comments AMB REFERRAL TO ORTHOPAEDIC SURGERY Routine 11/28/2024 Low back pain at multiple sites documented in this encounter Results * Referral to Orthopaedic Surgery (11/28/2024) Britney Hanson STRUCTURAL MANAGER OUTPATIENT REFERRAL ORDERABLES Final Result documented in this encounter Visit Diagnoses Diagnosis Low back pain at multiple sites- Primary documented in this encounter Additional Health Concerns Assessment Noted Time PHQ-9 Depression Total Score: 13 023 1:36 PM EDT documented as of this encounter Care Teams Accountant Auditor Relationship Specialty Start Date End Date Chrissie Hugo ANP [address] [place] [address] PCP - General Family Medicine 08/17/20 documented as of this encounter
--- OUTSIDE RECORDS SUMMARY | 2025-03-05 16:39 | XMS_ITS | Encounter Summary ---
Author Organization [employer] Address [address] [facility] 7t [place] [address] Care Team Providers Care Oxygen Equipment Aide Name Role Phone Chrissie Hugo Primary Care Provider Reason for Visit * Reason Onset Date Comments Med Refill 04/03/2024 Encounter Details Date Type Department Care Team ([facility] st Contact Info) Description 04/03/2024 Refill [facility] MED[facility] [address] [place], [place] [phone] Chrissie Hugo ANP [address] [place] [address] Other insomnia Social History Tobacco Use Types [...] Description 04/30/2025 12:45 PM EST Office Visit [facility] ADULT DENTAL [address] [place] [address] Janene, Jolly [address] [place] [address] 05/07/2025 1:15 PM EST Office Visit [facility] MEDICINE [address] [place] [address] Chrissie Hugo ANP [address] [place] [address] documented as of this encounter Visit Diagnoses Diagnosis Other insomnia documented in this encounter Additional Health Concerns Assessment Noted Time PHQ-9 Depression Total Score: 13 023 1:36 PM EDT documented as of this encounter Care Teams Oxygen Equipment Aide Relationship Specialty Start Date End Date Chrissie Hugo ANP [address] [place] [phone] PCP - General Family Medicine 08/17/20 documented as of this encounter
--- OUTSIDE RECORDS SUMMARY | 2025-03-05 16:39 | XMS_ITS | Clinical Summary ---
Author Organization [facility] Address [address] [place] [address] Care Team Providers Care Guest Services Manager Name Role Phone Janae Cordova [employer] SALES ENGINEER-C Primary Care Provider Source Comments PLEASE NOTE, if this patient is a minor, it may be UNLAWFUL to discuss sensitive information that is contained in these records (such as FAMILY PLANNING, MENTAL HEALTH or SUBSTANCE ABUSE) with the minor patient's parent or other person without the patient's specific authorization.[facility] Allergies No known active allergies Medications cholecalciferol , vitamin D3, 2,000 unit capsuleIndicati ons:Low vitamin D level Take 1 Cap by mouth once daily 90 Cap 2 03/23/2019 Active mirtazapine (REMERON) 15 mg tabletIndicatio ns:Other insomnia TAKE 1 TABLET BY MOUTH EVERYDAY AT BEDTIME 30 Tablet 2 06/07/2020 Active Active Problems Problem Noted Date Diagnosed Date Other insomnia 02/06/2020 Low vitamin D level 03/23/2019 Colon cancer screening 03/23/2019 Subclinical hypothyroidism 03/23/2019 Hydrocele, left 01/22/2019 Overview (02/07/2019): Testicular Ultrasound 02/06/19= Large left Hydrocele Referred to Urologist Immunizations Immunization Administration Dates Next Due Flu, Preservative Free 03/20/2019 Family History Relation Name Status Comments Brother Alive Father Mother Alive Sister Alive Social History Tobacco Use Types Packs/Day Years Used Date Smoking Tobacco: Never Smokeless Tobacco: Never Tobacco Cessation:Counseling Given: Yes Alcohol Use Standard Drinks/Week Comments Yes 0 (1 standard drink = 0.6 oz pur e alcohol) Social Connections Answer Date Recorded Connectedness 0 03/08/2024 Financial Resource Strain Answer Date R ecorded Financial Resource Strain 0 2018 Stress Answer Date Recorded Stress 0 02/07/2019 Physical Activity Answer Date Recorded Physical Activity 0 02/07/2019 Food Insecurity Answer Date Recorded Food 0 03/13/2024 Transportation Needs Answer Date Record ed Transportation 0 02/07/2019 Housing Stability Answer Date Recorded Housing 0 02/07/2019 Safety and Environment Answer Date Dom rded Safety 0 02/07/2019 Utilities Answer Date Recorded Utilities 0 02/07/2019 Employment Answer Date Recorded Stress 0 03/08/2024 Sex and Gender Information Value Date Recorded Sex Assigned at Male 01/22/2019 11:46 AM PDT Legal Sex Male 1:14 PM PDT Gender Identity Male 01/22/2019 11:46 AM PDT Sexual Orientation Straight 01/22/2019 12 :13 PM PDT Last Filed Vital Signs Vital Sign Reading Time Taken Comments Blood Pressure 100/68 03/20/2019 3:36 PM EDT Pulse 68 03/20/2019 3:36 PM EDT Temperature 36.7 C (98 F) 03/20/2019 3:36 PM EDT Respiratory Rate 18 03/20/2019 3:36 PM EDT Oxygen Saturation - - Inhaled Oxygen Concentration - - Weight 61.9 kg (136 lb 6.4 oz) 03/20/2019 3:36 P M EDT Height 167.6 cm (5' 6 ) 03/20/2019 3:36 PM EDT Body Mass Index 22.02 03/20/2019 3:36 PM EDT Plan of Treatment Not on file Insurance [facility] Care Teams Guest Services Manager Relationship Specialty Start Date End Date Janae Cordova FNP-C [address] [place] [address] PCP - General 11/25/21
[2025-03-05 17:19] LABS: Anion Gap 8 (12-20); Blood Urea Nitrogen 15 mg/dL (9-16); Calcium 9.2 mg/dL (8.4-10.2); Carbon Dioxide 29 mmol/L (22-29); Chloride 110 mmol/L (96-108); Estimated Glomerular Filt Rate 55; Potassium 4.1 mmol/L (3.3-5.1); Sodium 143 mmol/L (135-145)
[2025-03-05 17:20] LABS: Parathyroid Hormone Intact 69.4 pg/mL (8.7-77.1)
[2025-03-05 17:43] LABS: Vitamin B12 267 pg/mL (200-900)
[2025-03-05 18:34] LABS: Free T4 (Free Thyroxine) 0.81 ng/dL (0.71-1.85)
== END 2025-03-05 15:05 | disposition home or self-care (01) ==
LOC: HO.HHCL 15:04
PROVIDERS: PCP Nurse Practitioner Primary Care; Visit Provider Nurse Practitioner Primary Care
DX: E53.8 Deficiency of other specified B group vitamins (principal); E21.3 Hyperparathyroidism, unspecified; E03.8 Other specified hypothyroidism; R79.89 Other specified abnormal findings of blood chemistry
CPT/HCPCS: 36415; 80048; 82306; 82607; 83970; 84439; 84443